=== PATIENT | female | born 2000 | race Caucasian/White ===

== ENCOUNTER 2023-04-26 13:41 | Emergency (ER) | payer OTHER ==
[2023-04-26] MEDS ORDERED: SODIUM CHLORIDE 0.9% 500 ML 500 ML IV ONE (14:32)
[2023-04-26] MEDS ORDERED: SODIUM CHLORIDE 0.9% 1,000 ML IV ONE (14:32)
[2023-04-26] MEDS ORDERED: ONDANSETRON 4 MG/2 ML VIAL IVP STA (14:32)
--- NOTE | 2023-04-26 14:36 | ED ---
Nausea/Vomiting/Diarrhea HPI - General Chief complaint: Nausea/Vomiting/Diarrhea Stated complaint: 6 weeks pg very ill Time Seen by Provider: 04/26/23 14:13 Source: patient, RN notes reviewed Mode of arrival: wheelchair Limitations: no limitations - History of Present Illness Initial comments: 23-year-old female presents emergency Department nausea vomiting early . Patient states she is A0 currently 6 weeks she has no vaginal bleeding, abdominal pain states that she is very nauseated. Patient states that she feels dehydrated and is making her feel very anxious. Patient denies any chest pain denies any associated symptoms. - Related Data Previous Rx's Medication Instructions Recorded Metoclopramide [Reglan] 10 mg PO TID PRN #15 tab 04/26/23 Doxylamine Succinate/Vit B6 1 tab PO Q12H #14 tab 04/27/[address] [Dicleg[address] Dr 10-10 mg Tablet] Allergies Allergy/AdvReac Type Severity Reaction Status Date / Time No Known Allergies Allergy Verified 04/26/23 13:52 Review of Systems ROS Statement: Those systems with pertinent positive or pertinent negative responses have been documented in the HPI. ROS Other: All systems not noted in ROS Statement are negative. Past Medical History Past Medical History: No Reported History History of Any Multi-Drug Resistant Organisms: None Reported Past Surgical History: Hernia Repair Past Psychological History: Anxiety, Depression Smoking Status: Current every day smoker Past Alcohol Use History: None Reported Past Drug Use History: None Reported, Marijuana General Exam Limitations: no limitations General appearance: alert, in no apparent distress Head exam: Present: atraumatic, normocephalic, normal inspection Eye exam: Present: normal appearance, PERRL, EOMI. Absent: scleral icterus, conjunctival injection, periorbital swelling ENT exam: Present: normal exam, normal oropharynx, mucous membranes moist Neck exam: Present: normal inspection, full ROM. Absent: tenderness, meningismus, lymphadenopathy Respiratory exam: Present: normal lung sounds bilaterally. Absent: respiratory distress, wheezes, rales, rhonchi, stridor Cardiovascular Exam: Present: regular rate, normal rhythm, normal heart sounds. Absent: systolic murmur, diastolic murmur, rubs, gallop, clicks GI/Abdominal exam: Present: soft, normal bowel sounds. Absent: distended, tenderness, guarding, rebound, rigid Neurological exam: Present: alert Course Vital Signs 04/26/23 04/26/23 13:49 18:08 Temperature 99.2 F 98.3 F Pulse Rate 61 92 Respiratory 22 18 Rate Blood Pressure 139/87 124/88 O2 Sat by Pulse 100 98 Oximetry Medical Decision Making - Medical Decision Making Was pt. sent in by a medical professional or institution (CELINE Alvarado, NEON SIGN MAKER, urgent care, hospital, or skilled nursing...) When possible be specific @ -No Did you speak to anyone other than the patient for history (EMS, parent, family, police, friend...)? What history was obtained from this source @ -No Did you review nursing and triage notes (agree or disagree)? Why? @ -I reviewed and agree with nursing and triage notes Were old charts reviewed (outside hosp., previous admission, EMS record, old EKG, old radiological studies, urgent care reports/EKG's, skilled nursing records)? Report findings @ -No old charts were reviewed Differential Diagnosis (chest pain, altered mental status, abdominal pain women, abdominal pain men, vaginal bleeding, weakness, fever, dyspnea, syncope, headache, dizziness, GI bleed, back pain, seizure, CVA, palpatations, mental health, musculoskeletal)? @ -Differential Abdominal Pain Women: Appendicitis, Cholecystitis, diverticulosis, ischemic bowel, pancreatitis, hepatitis, UTI, gastroenteritis, AAA, incarcerated hernia, bowel obstruction, constipation, inflammatory bowel, hepatitis, peptic ulcer disease, splenic infarction, perforated viscus, vulvitis, ovarian torsion, PID, kidney stone, p lacenta abruption, this is not meant to be an all-inclusive list EKG interpreted by me (3pts min.). @ -None X-rays interpreted by me (1pt min.). @ -None done CT interpreted by me (1pt min.). @ -None done U/S interpreted by me (1pt. min.). @ -None done What testing was considered but not performed or refused? (CT, X-rays, U/S, la bs)? Why? @ -Consider ultrasound was patient has no lower abdominal pain and What meds were considered but not given or refused? Why? @ -None Did you discuss the management of the patient with other professionals ( professionals i.e. CELINE Alvarado, NEON SIGN MAKER, lab, RT, psych nurse, social services technician, cake winder, teacher, air defense control officer, counter caser)? Give summary @ -No Was smoking cessation discussed for >3mins.? @ -No Was critical care preformed (if so, how long)? @ -No Were there social determinants of health that impacted care today? How? (Homelessness, low income, unemployed, alcoholism, drug addiction, transpo rtation, low edu. Level, literacy, decrease access to med. care, penitentiary, rehab)? @ -No Was there de-escalation of care discussed even if they declined (Discuss DNR or withdrawal of care, Hospice)? DNR status @ -No What co-morbidities impacted this encounter? (DM, HTN, Smoking, COPD, CAD, Cancer, CVA, ARF, Chemo, Hep., AIDS, mental health diagnosis, sleep apnea, morbid obesity)? @ -None Was patient admitted / discharged? Hospital course, mention meds given and route, prescriptions, significant lab abnormalities, going to OR and other pertinent info. @ -[Discharge patient is breathing. Antiemetics IV fluids patient we discharged in stable condition return parameters discussed Undiagnosed new problem with uncertain prognosis? @ -No Drug Therapy requiring intensive monitoring for toxicity (Heparin, Nitro, Insulin, Cardizem)? @ -No Were any procedures done? @ -No Diagnosis/symptom? @ -Nausea vomiting Acute, or Chronic, or Acute on Chronic? @ -Acute Uncomplicated (without systemic symptoms) or Complicated (systemic symptoms)? @ -Uncomplicated Side effects of treatment? @ -No Exacerbation, Progression, or Severe Exacerbation? @ -No Poses a threat to life or bodily function? How? (Chest pain, [place], [place], pneumonia, PE, COPD, DKA, ARF, appy, cholecystitis, CVA, Diverticulitis, Homicidal, Suicidal, threat to staff... and all critical care pts) @ -No - Lab Data Result diagrams: 04/26/23 14:02 04/26/23 14:02 Lab Results 04/26/23 04/26/23 04/26/23 Range/Units 14:02 14:02 16:50 WBC 13.7 H (3.8-10.6) k/uL RBC 4.98 (3.80-5.40) m/uL Hgb 14.5 (11.4-16.0) gm/dL Hct 42.8 (34.0-46.0) % MCV 86.0 (80.0-100.0) fL MCH 29.1 (25.0-35.0) pg MCHC 33.8 (31.0-37.0) g/dL RDW 12.0 (11.5-15.5) % Plt Count 313 (150-450) k/uL MPV 8.0 Neutrophils % 93 % Lymphocytes % 6 % Monocytes % 1 % Eosinophils % 0 % Basophils % 0 % Neutrophils # 12.6 H (1.3-7.7) k/uL Lymphocytes # 0.8 L (1.0-4.8) k/uL Monocytes # 0.2 (0-1.0) k/uL Eosinophils # 0.0 (0-0.7) k/uL Basophils # 0.0 (0-0.2) k/uL Sodium 137 (137-145) mmol/L Potassium 4.0 (3.5-5.1) mmol/L Chloride 103 (98-107) mmol/L Carbon Dioxide 19 L (22-30) mmol/L Anion Gap 15 mmol/L BUN 8 (7-17) mg/dL Creatinine 0.55 (0.52-1.04) mg/dL Est GFR (CKD-EPI)AfAm >90 (>60 ml/min/1.73 sqM) Est GFR (CKD-EPI)NonAf >90 (>60 ml/min/1.73 sqM) Glucose 170 H (74-99) mg/dL Calcium 10.6 H (8.4-10.2) mg/dL Magnesium 1.6 (1.6-2.3) mg/dL Total Bilirubin 0.8 (0.2-1.3) mg/dL AST 34 (14-36) U/L ALT 34 (4-34) U/L Alkaline Phosphatase 138 H (38-126) U/L Total Protein 7.9 (6.3-8.2) g/dL Albumin 5.1 H (3.5-5.0) g/dL HCG, Quant 97203.9 mIU/mL Urine Color Urine Appearance (Clear) Urine pH (5.0-8.0) Ur Specific [place] (1.001-1.035) Urine Protein (Negative) Urine Glucose (UA) (Negative) Urine Ketones (Negative) Urine Blood (Negative) Urine Nitrite (Negative) Urine Bilirubin (Negative) Urine Urobilinogen (<2.0) mg/dL Ur Leukocyte Esterase (Negative) Urine RBC (0-5) /hpf Urine WBC (0-5) /hpf Ur Squamous Epith Cells (0-4) /hpf Urine Mucus (None) /hpf Blood Type A Positive Blood Type Recheck No Previous Record Bld Type Recheck Status [facility] ONLY 04/26/23 Range/Units 16:57 WBC (3.8-10.6) k/uL RBC (3.80-5.40) m/uL Hgb (11.4-16.0) gm/dL Hct (34.0-46.0) % MCV (80.0-100.0) fL MCH (25.0-35.0) pg MCHC (31.0-37.0) g/dL RDW (11.5-15.5) % Plt Count (150-450) k/uL MPV Neutrophils % % Lymphocytes % % Monocytes % % Eosinophils % % Basophils % % Neutrophils # (1.3-7.7) k/uL Lymphocytes # (1.0-4.8) k/uL Monocytes # (0-1.0) k/uL Eosinophils # (0-0.7) k/uL Basophils # (0-0.2) k/uL Sodium (137-145) mmol/L Potassium (3.5-5.1) mmol/L Chloride (98-107) mmol/L Carbon Dioxide (22-30) mmol/L Anion Gap mmol/L BUN (7-17) mg/dL Creatinine (0.52-1.04) mg/dL Est GFR (CKD-EPI)AfAm (>60 ml/min/1.73 sqM) Est GFR (CKD-EPI)NonAf (>60 ml/min/1.73 sqM) Glucose (74-99) mg/dL Calcium (8.4-10.2) mg/dL Magnesium (1.6-2.3) mg/dL Total Bilirubin (0.2-1.3) mg/dL AST (14-36) U/L ALT (4-34) U/L Alkaline Phosphatase (38-126) U/L Total Protein (6.3-8.2) g/dL Albumin (3.5-5.0) g/dL HCG, Quant mIU/mL Urine Color Yellow Urine Appearance Cloudy H (Clear) Urine pH 5.5 (5.0-8.0) Ur Specific [place] 1.023 (1.001-1.035) Urine Protein Negative (Negative) Urine Glucose (UA) Negative (Negative) Urine Ketones 4+ H (Negative) Urine Blood Negative (Negative) Urine Nitrite Negative (Negative) Urine Bilirubin Negative (Negative) Urine Urobilinogen <2.0 (<2.0) mg/dL Ur Leukocyte Esterase Negative (Negative) Urine RBC <1 (0-5) /hpf Urine WBC 2 (0-5) /hpf Ur Squamous Epith Cells 6 H (0-4) /hpf Urine Mucus Few H (None) /hpf Blood Type Blood Type Recheck Bld Type Recheck Status Disposition Clinical Impression: Nausea/vomiting in Disposition: HOME SELF-CARE Condition: Stable Instructions (If sedation given, give patient instructions): Nausea and Vomiting in (ED) Additional Instructions: Please return to the Emergency Department if symptoms worsen or any other concerns. Prescriptions: Metoclopramide [Reglan] 10 mg PO TID PRN #15 tab PRN Reason: Nausea Is patient prescribed a controlled substance at d/c from ED?: No Referrals: Satya Stiles MD [Primary Care Provider] - 1-2 days Time of Disposition: 18:01
[2023-04-26 14:52] LABS: Basophils % (A) 0 %; Eosinophils % (A) 0 %; HCT 42.8 % (34.0-46.0); HGB 14.5 gm/dL (11.4-16.0); Lymphocytes # (A) 0.8 k/uL (1.0-4.8); Lymphocytes % (A) 6 %; MCH 29.1 pg (25.0-35.0); MCHC 33.8 g/dL (31.0-37.0); Monocytes # (A) 0.2 k/uL (0-1.0); Monocytes % (A) 1 %; Neutrophils # (A) 12.6 k/uL (1.3-7.7); Neutrophils % (A) 93 %; Platelet Count 313 k/uL (150-450); RBC 4.98 m/uL (3.80-5.40); WBC 13.7 k/uL (3.8-10.6)
[2023-04-26 15:13] LABS: ALT 34 U/L (4-34); AST 34 U/L (14-36); African American GFR (CKD) >90 (>60 ml/min/1.73 sqM); Albumin 5.1 g/dL (3.5-5.0); Alkaline Phosphatase 138 U/L (38-126); Anion Gap 15 mmol/L; Blood Urea Nitrogen 8 mg/dL (7-17); Calcium 10.6 mg/dL (8.4-10.2); Carbon Dioxide 19 mmol/L (22-30); Chloride 103 mmol/L (98-107); Glucose 170 mg/dL (74-99); Magnesium 1.6 mg/dL (1.6-2.3); Non-African American GFR(CKD) >90 (>60 ml/min/1.73 sqM); Sodium 137 mmol/L (137-145); Total Bilirubin 0.8 mg/dL (0.2-1.3); Total Protein 7.9 g/dL (6.3-8.2)
[2023-04-26] MEDS ORDERED: METOCLOPRAMIDE 5 MG/ML 2 ML VIAL IVP STA (15:50)
[2023-04-26] MEDS ORDERED: diphenhydrAMINE 50 MG/ML 1 ML VIAL IVP STA (15:50)
[2023-04-26 17:48] LABS: Appearance,Urine Cloudy (Clear); Bilirubin,Urine Negative (Negative); Blood,Urine Negative (Negative); Color,Urine Yellow; Glucose,Urine (UA) Negative (Negative); Ketones,Urine 4+ (Negative); Leukocyte Esterase,Urine Negative (Negative); Mucus,Urine Few /hpf; Nitrite,Urine Negative (Negative); PH, Urine 5.5 (5.0-8.0); Protein,Urine Negative (Negative); RBC,Urine <1 /hpf (0-5); Specific Gravity,Urine 1.023 (1.001-1.035); Squamous Epithelial Cell,Urine 6 /hpf (0-4); Urobilinogen,Urine <2.0 mg/dL (<2.0); WBC,Urine 2 /hpf (0-5)
[2023-04-26 18:14] VITALS: BP 124/88; PULSE 92; RESP 18; TEMP 98.3
== END 2023-04-26 18:24 | disposition home or self-care (01) ==
LOC: EC 13:41
DX: O21.9 Vomiting of pregnancy, unspecified (principal); O99.331 Smoking (tobacco) complicating pregnancy, first trimester; F17.200 Nicotine dependence, unspecified, uncomplicated; Z86.59 Personal history of other mental and behavioral disorders; Z3A.01 Less than 8 weeks gestation of pregnancy
CPT/HCPCS: 36415; 86900; 86901; 80053; 83735; 85025; 81001; 84702; 99284; 96374; 96361; J2405

== ENCOUNTER 2023-04-26 20:57 | Emergency (ER) | payer OTHER ==
[2023-04-26] MEDS ORDERED: diphenhydrAMINE 50 MG/ML 1 ML VIAL IVP STA (21:09)
[2023-04-26] MEDS ORDERED: METOCLOPRAMIDE 5 MG/ML 2 ML VIAL IVP STA (21:09)
[2023-04-26] MEDS ORDERED: SODIUM CHLORIDE 0.9% 1,000 ML IV STA (21:10)
--- NOTE | 2023-04-26 21:13 | ED ---
Nausea/Vomiting/Diarrhea HPI - General Chief complaint: Nausea/Vomiting/Diarrhea Stated complaint: Nausea, Vomiting Time Seen by Provider: 04/26/23 21:06 Source: patient, RN notes reviewed Mode of arrival: ambulatory Limitations: no limitations - History of Present Illness Initial comments: Patient is a 23-year-old female presented ER with chief complaint of nausea and vomiting. She was seen here earlier today and received 2L IV fluids and IV Zofran. Patient states when she was discharged from 6 PM her symptoms have resolved. Patient reports she went home and ate dinner and vomited everything back up. She does endorse a few episodes of diarrhea yesterday. States she has not had a bowel movement since. Patient states she bleeds a lot and is trying to quit cold turkey currently. She would like nicotine patches to help. Patient denies any abdominal pain, urinary symptoms, headaches, double blurry vision, URI symptoms, chest pain, shortness of breath. - Related Data Previous Rx's Medication Instructions Recorded Metoclopramide [Reglan] 10 mg PO TID PRN #15 tab 04/26/23 Allergies Allergy/AdvReac Type Severity Reaction Status Date / Time No Known Allergies Allergy Verified 04/26/23 13:52 Review of Systems ROS Statement: Those systems with pertinent positive or pertinent negative responses have been documented in the HPI. ROS Other: All systems not noted in ROS Statement are negative. Past Medical History Past Medical History: No Reported History History of Any Multi-Drug Resistant Organisms: None Reported Past Surgical History: Hernia Repair Past Psychological History: Anxiety, Depression Smoking Status: Current some day smoker, Vaper Past Alcohol Use History: None Reported Past Drug Use History: None Reported, Marijuana General Exam Limitations: no limitations General appearance: alert, in no apparent distress Respiratory exam: Present: normal lung sounds bilaterally. Absent: respiratory distress, wheezes, rales, rhonchi, stridor Cardiovascular Exam: Present: regular rate, normal rhythm, normal heart sounds. Absent: systolic murmur, diastolic murmur, rubs, gallop, clicks GI/Abdominal exam: Present: soft, normal bowel sounds. Absent: distended, tenderness, guarding, rebound, rigid Neurological exam: Present: alert, oriented X3, CN II-XII intact Psychiatric exam: Present: normal affect, normal mood Skin exam: Present: warm, dry, intact, normal color. Absent: rash Course Vital Signs 04/26/23 20:57 Temperature 99.4 F Pulse Rate 62 Respiratory 18 Rate Blood Pressure 143/83 O2 Sat by Pulse 100 Oximetry Medical Decision Making - Medical Decision Making Was pt. sent in by a medical professional or institution (CELINE Alvarado, DAIRY MACHINE OPERATOR FARMWORKER, urgent care, hospital, or long term...) When possible be specific @ -No Did you speak to anyone other than the patient for history (EMS, parent, family, police, friend...)? What history was obtained from this source @ -No Did you review nursing and triage notes (agree or disagree)? Why? @ -I reviewed and agree with nursing and triage notes Were old charts reviewed (outside hosp., previous admission, EMS record, old EKG, old radiological studies, urgent care reports/EKG's, long term records)? Report findings @ -Yes, old charts from 04/26/23 were reviewed. Patient received IV fluids and IV antiemetics for symptom control. Patient was discharged once her symptoms had resolved. Differential Diagnosis (chest pain, altered mental status, abdominal pain women, abdominal pain men, vaginal bleeding, weakness, fever, dyspnea, syncope, headache, dizziness, GI bleed, back pain, seizure, CVA, palpatations, mental health, musculoskeletal)? @ -Differential Abdominal Pain Women: Appendicitis, Cholecystitis, divertic ulosis, ischemic bowel, pancreatitis, hepatitis, UTI, gastroenteritis, AAA, incarcerated hernia, bowel obstruction, constipation, inflammatory bowel, hepatitis, peptic ulcer disease, splenic infarction, perforated viscus, vulvitis, ovarian torsion, PID, kidney stone, placenta abruption, this is not meant to be an all-inclusive listble EKG interpreted by me (3pts min.). @ -None X-rays interpreted by me (1pt min.). @ -None done CT interpreted by me (1pt min.). @ -None done U/S interpreted by me (1pt. min.). @ -None done What testing was considered but not performed or refused? (CT, X-rays, U/S, labs)? Why? @ -None What meds were considered but not given or refused? Why? @ -None Did you discuss the management of the patient with other professionals (professionals i.e. CELINE Alvarado, DAIRY MACHINE OPERATOR FARMWORKER, lab, RT, psych nurse, family welfare social work professor, road patcher, teacher, procurement officer, geriatric case manager)? Give summary @ -No Was smoking cessation discussed for >3mins.? @ -No Was critical care preformed (if so, how long)? @ -No Were there social determinants of health that impacted care today? How? (Homelessness, low income, unemployed, alcoholism, drug addiction, murrell sportation, low edu. Level, literacy, decrease access to med. care, half-way, rehab)? @ -No Was there de-escalation of care discussed even if they declined (Discuss DNR or withdrawal of care, Hospice)? DNR status @ -No What co-morbidities impacted this encounter? (DM, HTN, Smoking, COPD, CAD, Cancer, CVA, ARF, Chemo, Hep., AIDS, mental health diagnosis, sleep apnea, morbid obesity)? @ -None Was patient admitted / discharged? Hospital course, mention meds given and route, prescriptions, significant lab abnormalities, going to OR and other pertinent info. @ -Discharge. Labs obtained in the ER show white count of 19.3 and a lactic of 4.0. Patient received IV fluids, Zofran and Benadryl. Patient also received IV D5 half-normal. Patient states she is feeling extremely better after medications and fluids. I discussed with the patient strict return parameters. Patient will be discharged in stable condition with follow-up to PCP. Undiagnosed new problem with uncertain prognosis? @ -No Drug Therapy requiring intensive monitoring for toxicity (Heparin, Nitro, Insulin, Cardizem)? @ -No Were any procedures done? @ -No Diagnosis/symptom? @ -Leukocytosis//nausea vomiting Acute, or Chronic, or Acute on Chronic? @ -Acute Uncomplicated (without systemic symptoms) or Complicated (systemic symptoms)? @Complicated Side effects of treatment? @ -No Exacerbation, Progression, or Severe Exacerbation? @ -No Poses a threat to life or bodily function? How? (Chest pain, [place], [place], pneumonia, PE, COPD, DKA, ARF, appy, cholecystitis, CVA, Diverticulitis, Homicidal, Suicidal, threat to staff... and all critical care pts) @ -No - Lab Data Result diagrams: 04/26/23 21:17 04/26/23 21:17 Lab Results 04/26/23 04/26/23 04/26/23 Range/Units 21:17 21:17 21:17 WBC 19.3 H (3.8-10.6) k/uL RBC 4.56 (3.80-5.40) m/uL Hgb 13.6 (11.4-16.0) gm/dL Hct 39.2 (34.0-46.0) % MCV 85.8 (80.0-100.0) fL MCH 29.8 (25.0-35.0) pg MCHC 34.8 (31.0-37.0) g/dL RDW 12.0 (11.5-15.5) % Plt Count 290 (150-450) k/uL MPV 7.9 Sodium 139 (137-145) mmol/L Potassium 3.5 (3.5-5.1) mmol/L Chloride 104 (98-107) mmol/L Carbon Dioxide 18 L (22-30) mmol/L Anion Gap 17 mmol/L BUN 7 (7-17) mg/dL Creatinine 0.53 (0.52-1.04) mg/dL Est GFR (CKD-EPI)AfAm >90 (>60 ml/min/1.73 sqM) Est GFR (CKD-EPI)NonAf >90 (>60 ml/min/1.73 sqM) Glucose 133 H (74-99) mg/dL Plasma Lactic Acid Ted 4.0 H* (0.7-2.0) mmol/L Calcium 10.1 (8.4-10.2) mg/dL Total Bilirubin 0.7 (0.2-1.3) mg/dL AST 34 (14-36) U/L ALT 39 H (4-34) U/L Alkaline Phosphatase 113 (38-126) U/L Total Protein 7.3 (6.3-8.2) g/dL Albumin 4.7 (3.5-5.0) g/dL HCG, Quant 87533.5 mIU/mL Disposition Clinical Impression: Nausea/vomiting in , Leukocytosis Disposition: HOME SELF-CARE Condition: Stable Additional Instructions: Please return to the Emergency Department if symptoms worsen or any other concerns. Is patient prescribed a controlled substance at d/c from ED?: No Referrals: Satya Stiles MD [Primary Care Provider] - 1-2 days Time of Disposition: 23:06
[2023-04-26 21:20] VITALS: TEMP 99.4
[2023-04-26] MEDS ORDERED: ONDANSETRON 4 MG/2 ML VIAL IVP STA (21:26)
[2023-04-26 21:29] LABS: HCT 39.2 % (34.0-46.0); HGB 13.6 gm/dL (11.4-16.0); MCH 29.8 pg (25.0-35.0); MCHC 34.8 g/dL (31.0-37.0); MCV 85.8 fL (80.0-100.0); Mean Platelet Volume 7.9; Platelet Count 290 k/uL (150-450); RBC 4.56 m/uL (3.80-5.40); WBC 19.3 k/uL (3.8-10.6)
[2023-04-26 21:52] LABS: African American GFR (CKD) >90 (>60 ml/min/1.73 sqM); Albumin 4.7 g/dL (3.5-5.0); Alkaline Phosphatase 113 U/L (38-126); Anion Gap 17 mmol/L; Blood Urea Nitrogen 7 mg/dL (7-17); Calcium 10.1 mg/dL (8.4-10.2); Carbon Dioxide 18 mmol/L (22-30); Chloride 104 mmol/L (98-107); Glucose 133 mg/dL (74-99); Non-African American GFR(CKD) >90 (>60 ml/min/1.73 sqM); Potassium 3.5 mmol/L (3.5-5.1); Sodium 139 mmol/L (137-145); Total Bilirubin 0.7 mg/dL (0.2-1.3); Total Protein 7.3 g/dL (6.3-8.2)
[2023-04-26 21:58] LABS: ALT 39 U/L (4-34)
[2023-04-26 22:04] LABS: AST 34 U/L (14-36)
[2023-04-26] MEDS ORDERED: DEXTROSE 5%-0.45% NACL 1,000 ML IV ONE ×2 (22:23→22:25)
[2023-04-27 00:12] VITALS: BP 123/58; PULSE 96; RESP 17
== END 2023-04-27 00:10 | disposition home or self-care (01) ==
LOC: EC 20:57
DX: O21.9 Vomiting of pregnancy, unspecified (principal); O99.119 Other diseases of the blood and blood-forming organs and certain disorders involving the immune mechanism complicating pregnancy, unspecified trimester; D72.829 Elevated white blood cell count, unspecified; O99.330 Smoking (tobacco) complicating pregnancy, unspecified trimester; F17.290 Nicotine dependence, other tobacco product, uncomplicated; O99.320 Drug use complicating pregnancy, unspecified trimester; F12.90 Cannabis use, unspecified, uncomplicated; Z3A.00 Weeks of gestation of pregnancy not specified
CPT/HCPCS: 80053; 83605; 85027; 84702; 99284; 96374; 96375; 96361 ×2; J1200; J2405; 36415

== ENCOUNTER 2023-04-27 00:41 | Observation (INO) | payer OTHER ==
[2023-04-27] MEDS ORDERED: ONDANSETRON ODT 4 MG TAB PO STA (00:47)
[2023-04-27] MEDS ORDERED: ONDANSETRON 4 MG ODT STARTER PACK 2 TAB BTL PO STA (00:47)
--- NOTE | 2023-04-27 01:44 | ED ---
General Adult HPI - General Chief complaint: Nausea/Vomiting/Diarrhea Stated complaint: N/V - 6wk Time Seen by Provider: 04/27/23 00:47 Source: patient, RN notes reviewed Mode of arrival: ambulatory Limitations: no limitations - History of Present Illness Initial comments: 23-year-old female who is presents the emergency department with a chief complaint of nausea and vomiting. Patient has been seen here twice a day for the same. She reports that she'll be stable and tolerate oral intake upon discharge. She will shortly go home and have her symptoms restart. She is complaining of projectile vomiting. Drinking a large glass of water. She did not have any antinausea medications at home. Patient denies any fevers, chills, cough, hematemesis vaginal bleeding, vaginal cramping, dysuria, hematuria. - Related Data Previous Rx's Medication Instructions Recorded Metoclopramide [Reglan] 10 mg PO TID PRN #15 tab 04/26/23 Doxylamine Succinate/Vit B6 1 tab PO Q12H #14 tab 04/27/23 [Dic[address] Dr 10-10 mg Tablet] Allergies Allergy/AdvReac Type Severity Reaction Status Date / Time No Known Allergies Allergy Verified 04/26/23 13:52 Review of Systems ROS Statement: Those systems with pertinent positive or pertinent negative responses have been documented in the HPI. ROS Other: All systems not noted in ROS Statement are negative. Past Medical History Past Medical History: No Reported History History of Any Multi-Drug Resistant Organisms: None Reported Past Surgical History: Hernia Repair Past Psychological History: Anxiety, Depression Smoking Status: Current some day smoker, Vaper Past Alcohol Use History: None Reported Past Drug Use History: None Reported, Marijuana General Exam - General Exam Comments Initial Comments: General: Alert, in no acute distress Head: atraumatic normocephalic. Eyes PERRL, EOMI intact, mucous membranes moist Respiratory: Lungs clear to auscultation bilaterally Cardiovascular: Heart rate regular rate and rhythm Abdominal: Soft without guarding or rebound Extremities: Normal inspection with full range of motion and normal capillary refill Neuroogic: alert and oriented 3, CN II-XII intact, able to ambulate with steady gait Skin: warm dry and intact with normal color Limitations: no limitations Course Vital Signs 04/27/23 00:52 Temperature 98.1 F Pulse Rate 87 Respiratory 16 Rate Blood Pressure 122/71 O2 Sat by Pulse 98 Oximetry - Reevaluation(s) Reevaluation #1: 04/27/23 01:44 Pt reevaluated. No acute distress noted. 04/27/23 03:35 patient reevaluated. Agreeable for admission. Medical Decision Making - Medical Decision Making Was pt. sent in by a medical professional or institution (, CELINE, ORGANIC SECTION TECHNICAL LEAD, urgent care, hospital, or senior living...) When possible be specific @ -[No] Did you speak to anyone other than the patient for history (EMS, parent, family, police, friend...)? What history was obtained from this source @ -[No] Did you review nursing and triage notes (agree or disagree)? Why? @ -[I reviewed and agree with nursing and triage notes] Were old charts reviewed (outside hosp., previous admission, EMS record, old EKG, old radiological studies, urgent care reports/EKG's, senior living records)? Report findings @ -Notes from 04/26/2023 reviewed. Differential Diagnosis (chest pain, altered mental status, abdominal pain women, abdominal pain men, vaginal bleeding, weakness, fever, dyspnea, syncope, headache, dizziness, GI bleed, back pain, seizure, CVA, palpatations, mental health, musculoskeletal)? @ -[not applicable] EKG interpreted by me (3pts min.). @ -[As above] X-rays interpreted by me (1pt min.). @ -[None done] CT interpreted by me (1pt min.). @ -[None done] U/S interpreted by me (1pt. min.). @ -[None done] What testing was considered but not performed or refused? (CT, X-rays, U/S, labs)? Why? @ -[None] What meds were considered but not given or refused? Why? @ -[None] Did you discuss the management of the patient with other professionals (professionals i.e. CELINE Alvarado, ORGANIC SECTION TECHNICAL LEAD, lab, RT, psych nurse, social media marketing analyst, paper production engineer, teacher, patrol community service officer, bilingual case manager)? Give summary @ -[No] Was smoking cessation discussed for >3mins.? @ -[No] Was critical care preformed (if so, how long)? @ -[No] Were there social determinants of health that impacted care today? How? (Homelessness, low income, unemployed, alcoholism, drug addiction, transportation, low edu. Level, literacy, decrease access to med. care, halfway, rehab)? @ -[No] Was there de-escalation of care discussed even if they declined (Discuss DNR or withdrawal of care, Hospice)? DNR status @ -[No] What co-morbidities impacted this encounter? (DM, HTN, Smoking, COPD, CAD, Cancer, CVA, ARF, Chemo, Hep., AIDS, mental health diagnosis, sleep apnea, morbid obesity)? @ -[None] Was patient admitted / discharged? Hospital course, mention meds given and route, prescriptions, significant lab abnormalities, going to OR and other pertinent info. @ -Admission. This is a 23-year-old female who is currently who presents the emergency department with acute nausea and vomiting. This is her third visit today. Physical exam is essentially unremarkable. Heart rate regular rate and rhythm, lungs clear to auscultation bilaterally abdomen soft nontender. Patient provided Zofran with symptomatic improvement. However due to patient having 3 physical for the same my decision to admit the patient for further observation and fluid resuscitation. Case discussed with bee Mason who agrees and accepts the patient. Discussed with RENATE Lyons who agrees with plan. Undiagnosed new problem with uncertain prognosis? @ -[No] Drug Therapy requiring intensive monitoring for toxicity (Heparin, Nitro, Insulin, Cardizem)? @ -[No] Were any procedures done? @ -[No] Diagnosis/symptom? @ -Intractable nausea and vomiting - Leukocytosis Acute, or Chronic, or Acute on Chronic? @ -Acute Uncomplicated (without systemic symptoms) or Complicated (systemic symptoms)? @ -Uncomplicated Side effects of treatment? @ -[No] Exacerbation, Progression, or Severe Exacerbation? @ -[No] Poses a threat to life or bodily function? How? (Chest pain, [place], [place], pneumonia, PE, COPD, DKA, ARF, appy, cholecystitis, CVA, Diverticulitis, Homicidal, Suicidal, threat to staff... and all critical care pts) @ -Low likelihood Disposition Clinical Impression: Nausea/vomiting in , Intractable nausea and vomiting Disposition: ADMITTED IP TO THIS HOSP Condition: Fair Referrals: Satya Stiles MD [Primary Care Provider] - 1-2 days Time of Disposition: 03:37
[2023-04-27] MEDS ORDERED: NALOXONE 0.4 MG/ML 1 ML VIAL IV PRN (06:52)
--- NOTE | 2023-04-27 07:00 | P.HPIM ---
History of Present Illness H&P Date: 04/27/23 Chief Complaint: Repeated nausea vomiting 23-year-old female no significant past medical history, 1 para 0 Patient coming in for repeated nausea vomiting of 1 day duration she presented to the emergency department 3 times each time her symptoms get controlled, she l eaves goes home and her symptoms started vomiting again. Patient denies any bleeding denies any vaginal discharge denies any abdominal pain. She learned that she is about a week ago, she believes she is 6 weeks . She's not tolerating any by mouth intake even a glass of water and will make her having projectile vomiting. She denies any diarrhea denies any changes in her urinary or bowel habits denies any fevers or chills denies any upper respiratory infection symptoms. She claims this is desired and having good social support. She does admit to tobacco smoking and marijuana she strength to cut back since she learned that she's she denies any alcohol review of systems Pertinent positives as noted in HPI. All other systems were reviewed and are ne gative on exam Constitutional: No acute distress, conversant, pleasant Eyes: Anicteric sclerae, moist conjunctiva, Pupils equal round reactive to light ENMT: NC/AT Oropharynx clear, no erythema, or exudates Neck: Supple, no masses, or JVD No carotid bruits No thyromegaly Lungs: Clear to auscultation Clear to percussion Normal respiratory effort, no accessory muscle use Cardiovascular: Heart regular in rate and rhythm, No murmurs, gallops, or rubs No peripheral edema Abdominal: Soft Nontender, no guarding, rebound or rigidity Abdomen moving with respiration Normoactive bowel sounds No hepatomegaly, No splenomegaly No palpable mass No abdominal wall hernia noted Extremities: No digital cyanosis No clubbing Pedal pulses intact and symmetrical Radial pulses intact and symmetrical No calf tenderness Psychiatric: Alert and oriented to person, place and time Appropriate affect fair judgement Neuro Muscles Strength 5/5 in all 4 extremities Sensation to light touch grossly present throughout Cranial nerves II-XII grossly intact Lymphatics: no palpable cervical or supraclavicular lymph nodes Past Medical History Past Medical History: No Reported History History of Any Multi-Drug Resistant Organisms: None Reported Past Surgical History: Hernia Repair Past Psychological History: Anxiety, Depression Smoking Status: Current some day smoker, Vaper Past Alcohol Use History: None Reported Past Drug Use History: None Reported, Marijuana Medications and Allergies Home Medications Medication Instructions Recorded Confirmed Type Metoclopramide [Reglan] 10 mg PO TID PRN #15 tab 04/26/23 Rx Doxylamine Succinate/Vit B6 1 tab PO Q12H #14 tab 04/27/23 Rx [Dicmeera Dr 10-10 mg Tablet] Allergies Allergy/AdvReac Type Severity Reaction Status Date / Time No Known Allergies Allergy Verified 04/26/23 13:52 Physical Exam Vitals: Vital Signs Temp Pulse Resp BP Pulse Ox 04/27/23 00:52 98.1 F 87 16 122/71 98 Intake and Output 04/26/23 04/26/23 04/27/23 14:59 22:59 06:59 Other: Weight 63.049 kg Assessment and Plan Assessment: 23-year-old female no significant past medical history 1 para 0 coming in for repeated nausea vomiting of 1 day duration I discussed the case with the ED doctor and accepted the admission for hyperemesis gravidarum with anticipated length of stay less than 2 midnights Hyperemesis gravidarum associated with 1 para 0, 6 weeks , beta-hCG positive Check transvaginal ultrasound to confirm interatrial Symptom control of nausea vomiting with Zofran when necessary IV fluid hydration normal saline status post 1 L bolus continue with 100 mL per hour Blood work showing white count 19.3 afebrile Hemoglobin 13.6 Sodium 139 potassium 3.5 Dear and 7 creatinine 0.5 Lactic acid 4 repeat lactic acid Magnesium 1.6 Liver enzymes unremarkable Beta-hCG positive Full code DVT prophylaxis mechanical
[2023-04-27] MEDS: SODIUM CHLORIDE 0.9% 1,000 ML IV SCH ×2 (07:23→19:50)
--- NOTE | 2023-04-27 07:57 | US ---
EXAMINATION TYPE: Transabdominal DATE OF EXAM: 04/27/2023 7:45 AM COMPARISON: NONE CLINICAL INDICATION: Female, 23 years old with history of 6 w preg, confirm intrauterine ; N &V EXAM PERFORMED: Transabdominal (TA) EXAM MEASUREMENTS: GESTATIONAL AGE / DATING Physician Established: Not yet established Dates by LMP: (6 weeks/5 days) EDC: 12/16/2023 Dates by First Scan: No previous this is first scan Dates by Current Scan for: (6 weeks/6 days) EDC: 12/15/2023 MATERNAL ANATOMY Uterus: 8.5 x 4.9 x 5.7 cm Right Ovary: 3.0 x 1.8 x 1.8 cm Left Ovary: 2.4 x 2.4 x 1.9 cm Post CDS / Adnexa: wnl Presence of free fluid: No Presence of subchorionic bleed: 1.9 x 0.6 x 1.8 cm GESTATION / SURVEY CRL: 0.8 cm (6 weeks/6 days) MSD: wnl Yolk Sac (normal less than 6mm): 2mm Heart Rate: 146 bpm Rhythm: Normal IUP: Viable IUP Date of LMP: 03/11/2023 Beta HcG (if available): 50,181.9 Single, viable IUP, small sub-chorionic bleed IMPRESSION: 1. Single intrauterine viable gestation with estimated gestational age of 6 weeks 6 days and estimate d due date of 12/15/2023. 2. Small subchorionic hemorrhage. Close clinical surveillance is recommended.
[2023-04-27 11:15] LABS: HGB 12.6 gm/dL (11.4-16.0); MCH 30.3 pg (25.0-35.0); MCV 86.5 fL (80.0-100.0); Mean Platelet Volume 7.8; Platelet Count 266 k/uL (150-450); RBC 4.16 m/uL (3.80-5.40); RDW 12.2 % (11.5-15.5)
[2023-04-27 11:31] LABS: ALT 22 U/L (4-34); AST 24 U/L (14-36); African American GFR (CKD) >90 (>60 ml/min/1.73 sqM); Albumin 3.7 g/dL (3.5-5.0); Alkaline Phosphatase 96 U/L (38-126); Anion Gap 8 mmol/L; Blood Urea Nitrogen 5 mg/dL (7-17); Calcium 9.3 mg/dL (8.4-10.2); Carbon Dioxide 23 mmol/L (22-30); Chloride 109 mmol/L (98-107); Glucose 82 mg/dL (74-99); Magnesium 1.6 mg/dL (1.6-2.3); Non-African American GFR(CKD) >90 (>60 ml/min/1.73 sqM); Potassium 3.3 mmol/L (3.5-5.1); Sodium 140 mmol/L (137-145); Total Bilirubin 0.7 mg/dL (0.2-1.3); Total Protein 6.1 g/dL (6.3-8.2)
[2023-04-27] MEDS ORDERED: POTASSIUM CHLORIDE ER 20 MEQ TAB.ER PO STA (11:38)
[2023-04-27] MEDS: ONDANSETRON 4 MG/2 ML VIAL IVP PRN ×2 (12:20→19:50)
[2023-04-27] MEDS: MAGNESIUM SULFATE-D5W PMX 1 GM in DEXTROSE/WATER 1 100ML.BAG IVPB SCH ×2 (12:21→13:24)
[2023-04-27] MEDS: TRIMETHOBENZAMIDE 100 MG/ML 2 ML VIAL IM PRN (13:44)
[2023-04-27 13:53] LABS: Amphetamine Screen,Urine Not Detected (NotDetected); Barbiturate Screen,Urine Not Detected (NotDetected); Benzodiazepines Screen,Urine Not Detected (NotDetected); Cocaine Screen,Urine Not Detected (NotDetected); Methadone Screen, Urine Not Detected (NotDetected); Opiate Screen,Urine Not Detected (NotDetected); Oxycodone Screen, Urine Not Detected (NotDetected); Phencyclidine Screen,Urine Not Detected (NotDetected); Tricyclic Antidepressant,Urine Not Detected (NotDetected); Urn Cannabinoid Scrn Detected (NotDetected)
[2023-04-27] MEDS: ESCITALOPRAM 20 MG TAB PO SCH (15:50)
[2023-04-27] MEDS: PRENATAL VIT-IRON-FOLIC ACID 1 EACH TABLET PO SCH (15:56)
--- NOTE | 2023-04-27 16:46 | P.PN ---
Subjective Progress Note Date: 04/27/23 Hospital course: Patient is a 23-year-old female with a past medical history of anxiety, depression, and nicotine use. She presented to the emergency department on 04/27/23 secondary to intractable nausea and vomiting. Patient reportedly had multiple ER visits secondary to same complaint. Patient is currently 6 weeks ( 1 Para 0) and reports finding out she was approximately one week ago. She is not currently under care of SALES FLOOR ASSOCIATE. She was admitted to our services for dehydration secondary to intractable nausea and vomiting. Labs completed and reviewed. CBC showing leukocytosis with a PVC count of 2.0, BMP showing hypokalemia with potassium of 3.3 and hyperchloremia with chloride of 109. Magnesium slightly low 1.6. Covid PCR negative. Urine d rug screen positive for marijuana. Physical exam: Vital signs reviewed and stable. General: Nontoxic, no distress and appears stated age. Derm: Skin warm and dry, normal coloration for ethnicity. Head: Atraumatic, normocephalic and symmetric. Eyes: EOMs intact, no lid lag, and anicteric sclera Mouth: no lip lesions, mucus membranes moist Cardiovascular: regular rate and rhythm with normal S1S2, no murmur, positive posterior tibial pulses bilaterally, and cap refill < 2 seconds. Lungs: Respirations even, regular, and unlabored on room air. Lungs CTA bilaterally, no rhonchi, no rales, no wheezing, and no accessory muscle usage. Abdominal: soft, nontender to palpation, no guarding, no appreciable organomegaly Ext: ROM intact. No gross muscle atrophy, no edema, no contractures Neuro: Speech clear, face symmetrical and CN II-XII grossly intact with no noted focal neuro deficits Psych: Alert and oriented to person, place, time, and situation. Appropriate and pleasant affect. Assessment and Plan of Care: Cyclic vomiting, possibly secondary to hyperemesis gravidarum vs cannabinoid hyperemesis Dehydration Hypokalemia Hypomagnesemia Leukocytosis, reactive secondary to dehydration resulting from cyclic vomiting Cannabinoid use disorder Anxiety and depression Intrauterine , 6 weeks gestation -Continue IV fluid hydration with 0.9% normal saline at 100 mL per hour -Symptomatic care and pain management with Zofran 4 mg IVP every 8 hours as needed for nausea and vomiting and Tigan 200 mg IM every 6 hours as needed for uncontrolled nausea and vomiting not managed by Zofran. -Continue vitamins with Trinatal 1 tab daily. -Magnesium is 1.6 and orders placed for magnesium sulfate 2 g IVPB 1 dose. -Potassium 3.3 orders placed for K Dur 40 mEq by mouth 1 dose. -Strongly recommend cessation of cannabis use -Orders placed for repeat CBC, CMP, and magnesium with a.m. labs. First trimester Intrauterine , 6 weeks gestation Subchorionic hemorrhage - ultrasound obtained and reported as single intrauterine viable gestation with estimated gestational age of 6 weeks and 6 days with an estimated due date of 12/15/23 with small subchorionic hemorrhage recommending close clinical surveillance. -Urine drug screen negative for amphetamines or cocaine -Patient denies experiencing abdominal pain, cramping, vaginal discharge or bleeding. -Recommend light activity, avoid heavy lifting and avoiding sexual intercourse until outpatient follow-up with SALES FLOOR ASSOCIATE Data and imaging reviewed: Morning labs reviewed. CBC showing leukocytosis with WBC count of 12.0. BMP showing hypokalemia with potassium of 3.3 and hyperchloremia with chloride of 109. Urine drug screen positive for marijuana. Urinalysis obtained 04/26/23 positive for ketones and squamous epithelial cells showing contamination but negative for infection showing no leukocytes, WBCs, or nitrites. ultrasound obtained and reported as a single intrauterine viable gestation with estimated gestational age of 6 weeks and 6 days with an estimated due date of 12/15/23 with small subchorionic hemorrhage recommending close clinical surveillance. CODE STATUS: Full code DVT prophylaxis: SCDs Anticipated discharge date: Clinical course to determine Anticipated discharge place: Home Patient was seen independently by Nurse Pracitioner. This document was prepared using [employer] dictation software. Please allow for errors in healthcare manager, while rare they do occur. Objective - Vital Signs Vital signs: Vital Signs Temp 98.2 F 04/27/23 09:06 Pulse 69 04/27/23 09:06 Resp 15 04/27/23 09:06 BP 121/75 04/27/23 09:06 Pulse Ox 99 04/27/23 09:06 FiO2 Intake & Output 04/26/23 04/27/23 04/27/23 18:59 06:59 18:59 Weight 63.049 kg - Labs CBC & Chem 7: 04/27/23 10:48 04/27/23 10:48
[2023-04-28] MEDS: TRIMETHOBENZAMIDE 100 MG/ML 2 ML VIAL IM PRN ×2 (00:30→06:23)
[2023-04-28] MEDS: ONDANSETRON 4 MG/2 ML VIAL IVP PRN ×2 (03:29→12:59)
[2023-04-28 07:59] LABS: HCT 38.3 % (34.0-46.0); HGB 13.1 gm/dL (11.4-16.0); MCH 29.6 pg (25.0-35.0); MCHC 34.1 g/dL (31.0-37.0); MCV 86.6 fL (80.0-100.0); Mean Platelet Volume 7.9; Platelet Count 296 k/uL (150-450); RBC 4.43 m/uL (3.80-5.40); RDW 12.1 % (11.5-15.5); WBC 12.4 k/uL (3.8-10.6)
[2023-04-28 09:18] LABS: ALT 32 U/L (4-34); AST 59 U/L (14-36); African American GFR (CKD) >90 (>60 ml/min/1.73 sqM); Albumin 4.1 g/dL (3.5-5.0); Alkaline Phosphatase 94 U/L (38-126); Anion Gap 12 mmol/L; Blood Urea Nitrogen 5 mg/dL (7-17); Calcium 9.5 mg/dL (8.4-10.2); Carbon Dioxide 22 mmol/L (22-30); Chloride 105 mmol/L (98-107); Glucose 95 mg/dL (74-99); Magnesium 1.7 mg/dL (1.6-2.3); Non-African American GFR(CKD) >90 (>60 ml/min/1.73 sqM); Potassium 3.4 mmol/L (3.5-5.1); Sodium 139 mmol/L (137-145); Total Protein 6.6 g/dL (6.3-8.2)
[2023-04-28] MEDS: diphenhydrAMINE 50 MG/ML 1 ML VIAL IVP PRN ×2 (11:11→20:31)
[2023-04-28] MEDS: ESCITALOPRAM 20 MG TAB PO SCH (12:59)
[2023-04-28] MEDS: PRENATAL VIT-IRON-FOLIC ACID 1 EACH TABLET PO SCH (13:00)
[2023-04-28] MEDS ORDERED: POTASSIUM CHLORIDE ER 20 MEQ TAB.ER PO STA (14:41)
--- NOTE | 2023-04-28 14:48 | P.PN ---
Subjective Progress Note Date: 04/28/23 Hospital course: Patient is a 23-year-old female with a past medical history of anxiety, depression, and nicotine use. She presented to the emergency department on 04/27/23 secondary to intractable nausea and vomiting. Patient reportedly had multiple ER visits secondary to same complaint. Patient is currently 6 weeks ( 1 Para 0) and reports finding out she was approximately one week ago. She is not currently under care of [facility]. She was admitted to our services for dehydration secondary to intractable nausea and vomiting. Labs completed and reviewed. CBC showing leukocytosis with a PVC count of 2.0, BMP showing hypokalemia with potassium of 3.3 and hyperchloremia with chloride of 109. Magnesium slightly low 1.6. Covid PCR negative. Urine d rug screen positive for marijuana. Reviewed Urinalysis obtained on ER visit, 04/26/23 and it was positive for ketones and squamous epithelial cells showing contamination but negative for infection showing no leukocytes, WBCs, or nitrites. Physical exam: Patient seen and fully evaluated at bedside this morning. Patient reports continued and vomiting. Patient reports awakening that has been helping her is a hot shower. Patient reports taking 5 hot showers overnight. Had long discussion with patient regarding cannabinoid hyperemesis likely cause of cyclic vomiting as it is common for this to show improvement with hot showers. Patient verbalizes understanding and states that she has never felt this bad and never plans on using marijuana or any cannabinoid products again in the future. Patient continues to deny having any abdominal pain or cramping, vaginal discharge or bleeding, or any other complaints at this time. Vital signs reviewed and stable. General: Nontoxic, no distress and appears stated age. Derm: Skin warm and dry, normal coloration for ethnicity. Head: Atraumatic, normocephalic and symmetric. Eyes: EOMs intact, no lid lag, and anicteric sclera Mouth: no lip lesions, mucus membranes moist Cardiovascular: regular rate and rhythm with normal S1S2, no murmur, positive posterior tibial pulses bilaterally, and cap refill < 2 seconds. Lungs: Respirations even, regular, and unlabored on room air. Lungs CTA bilaterally, no rhonchi, no rales, no wheezing, and no accessory muscle usage. Abdominal: soft, nontender to palpation, no guarding, no appreciable or ganomegaly Ext: ROM intact. No gross muscle atrophy, no edema, no contractures Neuro: Speech clear, face symmetrical and CN II-XII grossly intact with no noted focal neuro deficits Psych: Alert and oriented to person, place, time, and situation. Appropriate and pleasant affect. Assessment and Plan of Care: Cyclic vomiting, likely cannabinoid hyperemesis however cannot rule out hyperemesis gravidarum Dehydration Hypokalemia Hypomagnesemia Leukocytosis, reactive secondary to dehydration resulting from cyclic vomiting Cannabinoid use disorder Anxiety and depression -Continue IV fluid hydration with 0.9% normal saline at 100 mL per hour -Symptomatic care and pain management with Zofran 4 mg IVP every 8 hours as needed for nausea and vomiting, Tigan 200 mg IM every 6 hours as needed for unco ntrolled nausea and vomiting not managed by Zofran, and due to persistent nausea and vomiting order also placed for Benadryl 25 mg IVP every 6 hours as needed for persistent nausea and vomiting. -Continue vitamins with Trinatal 1 tab daily. -Magnesium 1.7 and orders placed for magnesium sulfate 2 g IVPB 1 dose. -Potassium 3.4 and orders placed for K Dur 40 mEq by mouth 1 dose. -Strongly recommend cessation of cannabis use -Orders placed for repeat CBC, CMP, and magnesium with a.m. labs, we will follow up on these results and place additional orders as indicated based upon these findings. First trimester Intrauterine , 6 weeks gestation Subchorionic hemorrhage in first trimester - ultrasound obtained and reported as single intrauterine viable gestation with estimated gestational age of 6 weeks and 6 days with an estimated due date of 12/15/23 with small subchorionic hemorrhage recommending close clinical surveillance. -Urine drug screen negative for amphetamines or cocaine -Patient denies experiencing abdominal pain, cramping, vaginal discharge or bleeding. -Recommend light activity, avoid heavy lifting and avoiding sexual intercourse until outpatient follow-up with [facility] Data and imaging reviewed: Morning labs reviewed. CBC showing leukocytosis with WBC count of 12.4. BMP revealing hyperkalemia with potassium of 3.4. Magnesium remains slightly low at 1.7. AST elevated at 59 liver profile otherwise normal findings. Vital signs reviewed. Blood pressure 118/66, heart rate 67, respiratory rate 18, temp 98.6F, SpO2 of 90% on room air. CODE STATUS: Full code DVT prophylaxis: SCDs Anticipated discharge date: Clinical course to determine, likely 24-48 hours once nausea and vomiting have been controlled and patient is able to tolerate oral intake Anticipated discharge place: Home Patient was seen independently by Nurse Pracitioner. This document was prepared using [employer] dictation software. Please allow for errors in toll line repairer, while rare they do occur. Objective - Vital Signs Vital signs: Vital Signs Temp 98.0 F 04/27/23 23:55 Pulse 67 04/27/23 23:55 Resp 18 04/27/23 23:55 BP 128/71 04/27/23 23:55 Pulse Ox 100 04/27/23 15:58 FiO2 Intake & Output 04/27/23 04/28/23 04/28/23 18:59 06:59 18:59 Weight 63.049 kg Other: # Voids 2 - Labs CBC & Chem 7: 04/28/23 07:41 04/28/23 07:41 Labs: Abnormal Lab Results - Last 24 Hours (Table) 04/27/23 04/27/23 04/27/23 Range/Units 10:48 10:48 13:28 WBC 12.0 H (3.8-10.6) k/uL Potassium 3.3 L (3.5-5.1) mmol/L Chloride 109 H (98-107) mmol/L BUN 5 L (7-17) mg/dL Total Protein 6.1 L (6.3-8.2) g/dL U Marijuana (THC) Screen Detected H (NotDetected) 04/28/23 Range/Units 07:41 WBC 12.4 H (3.8-10.6) k/uL Potassium (3.5-5.1) mmol/L Chloride (98-107) mmol/L BUN (7-17) mg/dL Total Protein (6.3-8.2) g/dL U Marijuana (THC) Screen (NotDetected)
[2023-04-28] MEDS: MAGNESIUM SULFATE-D5W PMX 1 GM in DEXTROSE/WATER 1 100ML.BAG IVPB SCH ×2 (15:16→16:11)
[2023-04-28] MEDS: SODIUM CHLORIDE 0.9% 1,000 ML IV SCH (19:39)
[2023-04-29] MEDS: SODIUM CHLORIDE 0.9% 1,000 ML IV SCH ×2 (04:53→10:08)
[2023-04-29 08:01] VITALS: RESP 18
[2023-04-29] MEDS: PRENATAL VIT-IRON-FOLIC ACID 1 EACH TABLET PO SCH (10:07)
[2023-04-29] MEDS: ESCITALOPRAM 20 MG TAB PO SCH (10:09)
[2023-04-29 11:28] VITALS: BP 143/80; PULSE 62; TEMP 98.7
--- NOTE | 2023-04-29 13:27 | P.DS ---
Providers Date of admission: 04/27/23 06:58 Attending physician: Diane Watkins MD Consults: 04/27/23 16:42 Consult Physician Routine Consulting Provider: Brice Schaefer Consult Reason/Comments: subchorionic hemorrhage likely benign finding pt admitted w/ cyclic vomitin Do you want consulting provider notified?: Yes, Notify in am Primary care physician: Satya Stiles MD Hospital Course: Discharge Diagnosis: Cyclic vomiting, likely cannabinoid hyperemesis however cannot rule out hyperemesis gravidarum Dehydration Hypokalemia Hypomagnesemia Leukocytosis, reactive secondary to dehydration resulting from cyclic vomiting Cannabinoid use disorder Anxiety and depression First trimester Intrauterine , 6 weeks gestation Subchorionic hemorrhage in [facility] Course: Patient is a 23-year-old female with a past medical history of anxiety, depression, and nicotine use. She presented to the emergency department on 04/27/23 secondary to intractable nausea and vomiting. Patient reportedly had multiple ER visits secondary to same complaint. Patient is currently 6 weeks ( 1 Para 0) and reports finding out she was approximately one week ago. She is not currently under care of [facility]. She was admitted to our services for dehydration secondary to intractable nausea and vomiting. Labs completed and reviewed. CBC showing leukocytosis with a PVC count of 2.0, BMP showing hypokalemia with potassium of 3.3 and hyperchloremia with chloride of 109. Magnesium slightly low 1.6. Covid PCR negative. Urine drug screen positive for marijuana. Reviewed Urinalysis obtained on ER visit, 04/26/23 and it was positive for ketones and squamous epithelial cells showing contamination but negative for infection showing no leukocytes, WBCs, or nitrites. Patient was treated symptomatically with IV Tigan and Zofran. At the time of discharge patient reported feeling much better. She was counseled on marijuana cessation. Patient's ultrasound showed small subchorionic hemorrhage. I discussed with [facility] who reviewed the ultrasound results and said patient can follow up with them outpatient in 2 weeks for a follow-up ultrasound. Patient seen and examined at bedside on 04/29/2023.[] Vital signs reviewed and stable. General: [non toxic], [no distress], [appears at stated age] Derm: [warm], [dry] Head: [atraumatic], [normocephalic], [symmetric] Eyes: [EOMI], [no lid lag], [anicteric sclera] Mouth: [no lip lesion], [mucus membranes moist] Cardiovascular: [S1S2 reg], [no murmur], [positive posterior tibial pulse bilateral], Lungs: [CTA bilateral], [no rhonchi, no rales] , [no accessory muscle use] Abdominal: [soft], [ nontender to palpation], [no guarding], [no appreciable organomegaly] Ext: [no gross muscle atrophy], [no edema], [no contractures] Neuro: [ CN II-XI grossly intact], [no focal neuro deficits] Psych: [Alert], [oriented], [appropriate affect] A total of [33] minutes of time were spent preparing this complex discharge summary . Patient Condition at Discharge: Fair Plan - Discharge Summary New Discharge Prescriptions: Continue Escitalopram [Lexapro] 1 tab PO DAILY Vit No.179/Iron/Folic [ Tablet] 1 tab PO DAILY Discharge Medication List Escitalopram [Lexapro] 1 tab PO DAILY 04/27/23 [History] Vit No.179/Iron/Folic [ Tablet] 1 tab PO DAILY 04/27/23 [History] Follow up Appointment(s)/Referral(s): Satya Stiles MD [Primary Care Provider] - 1-2 days Brice Schaefer MD [STAFF PHYSICIAN] - 1 Week Patient Instructions/Handouts: Hyperemesis Gravidarum (DC), Subchorionic Hemorrhage (ED) Activity/Diet/Wound Care/Special Instructions: Activity: Light activity As tolerated. Take breaks as needed. Light activity only and Avoid heavy lifting and sexual intercourse until outpatient follow-up with [facility] Diet: Heart healthy and carb consistent diet. Special Instructions: Take all of your medications as directed and remember to keep all of your doctor's appointments and follow-up as needed. Thank you for allowing us to participate in your care, it was truly a pleasure having you for our patient!!! Discharge Disposition: HOME SELF-CARE
== END 2023-04-29 13:30 | disposition home or self-care (01) ==
LOC: EC 00:41 → 4FBP 06:58
PROVIDERS: ADMIT Internal Medicine; ATTEND Internal Medicine
DX: O21.1 Hyperemesis gravidarum with metabolic disturbance (principal); E83.42 Hypomagnesemia; O99.281 Endocrine, nutritional and metabolic diseases complicating pregnancy, first trimester; E86.0 Dehydration; D72.829 Elevated white blood cell count, unspecified; O99.341 Other mental disorders complicating pregnancy, first trimester; F32.A Depression, unspecified; F41.9 Anxiety disorder, unspecified; O99.321 Drug use complicating pregnancy, first trimester; F12.10 Cannabis abuse, uncomplicated; O99.331 Smoking (tobacco) complicating pregnancy, first trimester; F17.290 Nicotine dependence, other tobacco product, uncomplicated; Z79.899 Other long term (current) drug therapy; Z3A.01 Less than 8 weeks gestation of pregnancy; Z20.822 Contact with and (suspected) exposure to COVID-19
CPT/HCPCS: 96376 ×2; 96361 ×2; 96365; 96366 ×2; 96372 ×2; 96375 ×2; 99285; 80053 ×2; 83605; 83735 ×2; 85027 ×2; 80306; 87635; 76801; G0378 ×3; J1200; J3250 ×2; J2405 ×2; J3475 ×2; S0119